=== PATIENT | female | born 1995 | race Caucasian/White ===

== ENCOUNTER 2017-03-08 08:59 | Inpatient (IN) ==
[2017-03-07 09:37] LABS: Basophils % 0.1 % (0.0-0.8); Eosinophils # 0.1 10*3/uL (0.0-0.87); Eosinophils % 0.7 % (0.00-10.9); Hematocrit 36.7 VOL% (35.7-47.0); Hemoglobin 12.6 GM/DL (12.0-16.0); Immature Granulocytes % 0.3 %; Immature Granulocytes Absolute 0.03 #; Lymphocytes # 1.8 10*3/uL (1.4-4.0); Lymphocytes % 19.9 % (21.3-54.2); Mean Corpuscular HGB Conc 34.3 GM/DL (32-36); Mean Corpuscular Hemoglobin 27 PG (27-34); Mean Corpuscular Volume 79.6 FL (87-102); Mean Platelet Volume 10.3 FL (9.6-12.0); Monocytes # 0.3 10*3/uL (0.11-0.8); Monocytes % 3.5 % (1.7-12.7); Neutrophils # 6.7 10*3/uL (1.4-7.4); Neutrophils % 75.5 % (38.7-73.9); Platelet Count 193 T/CUMM (130-400); Red Blood Count 4.61 MC/CUMM (3.8-5.5); Red Cell Distribution Width 13.9 % (9.3-17.3); White Blood Count 8.8 T/CUMM (4-12)
[2017-03-07] MEDS: LABETALOL 100 MG TABLET PO SCH ×2 (09:45→20:55)
--- NOTE | 2017-03-07 10:00 | Ultrasound Report ---
Biophysical profile. Indication: Diabetic mother. There is a single intrauterine gestation in a breech presentation. The placenta is located anterior. The cervix is closed with a length of 4.3 cm. The heart rate is 140 bpm. The RICCO is 10.1 cm. breathing-2 Gross body movement-2 tone-2 Qualitative amniotic fluid volume-2 Score: 8/8, low risk for chronic asphyxia. PROCEDURE INTERPRETED AT [facility] DEPARTMENT OF RADIOLOGY Final Report Signed by: Dr. Abimbola Kemp
[2017-03-07 10:07] LABS: Albumin 2.9 G/DL (3.4-5.0); Bilirubin,Total 0.6 MG/DL (0.2-1.0); Calcium 9.1 MG/DL (8.5-10.1); Osmolality,Calculated 285.8 MOS/KG (273-304); Potassium 4.2 MMOL/L (3.5-5.1); Total Protein 6.4 G/DL (6.4-8.3)
--- NOTE | 2017-03-07 13:58 | OB/GYN History & Physical ---
History of Present Illness Chief complaint: Hyperglycemia, gestational diabetes History of present illness: Ms. Kevin Han is a 21 year old female 21-year-old 7 para 4 who presents with elevation of her blood sugars at 28+ weeks gestation. Patient's blood sugars fasting was well over 200+. She is admitted at this time for diabetic education, insulin management, pelvic ultrasound, and a 24 urine protein and creatinine. Home Medications Medication Instructions Recorded Confirmed Type Multivitamin () [ 1 tablet PO DAILY 04/29/15 06/07/15 History Vitamin] Ferrous Sulfate Tab [Feosol 325 mg PO BID #60 tablet 06/09/15 Rx Original Tab] HYDROcodone/ACETAMIN 5-325 [[place] 2 tablet PO Q6H PRN #30 tablet 06/09/15 Rx 5-325] NIFEdipine XL TAB [Procardia Xl] 30 mg PO DAILY #30 tablet 06/09/15 Rx Allergies Allergy/AdvReac Type Severity Reaction Status Date / Time No Known Allergies Allergy Verified 06/07/15 07:30 Medical,Surgical,& Family Hx - Medical History Reproductive: No history of: Ectopic , Complication - Surgical History Thoracic Surgeries: Patient denies;: Organ Transplant Neurologic Surgeries: Patient denies: Neurologic Surgery Reproductive Surgeries: Surgical HX of;: Section - Family History Family History: Reports;: Family Hypertension (MOM, MGM) Denies;: Family Stroke - Social History Smoking Status: Never smoker Frequency of Alcohol Use: None Type of Drug Use: None 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 - Constitutional Vitals: Vital Signs Temp Pulse Resp BP Pulse Ox 03/07/17 11:53 97.1 F L 93 H 19 116/69 99 General appearance: no acute distress - Head Head exam: Present: normal inspection - Eye Eye exam: Present: EOMI Pupils: Present: MYRNA - ENT ENT exam: Present: normal exam - Neck Neck exam: Present: normal inspection - Respiratory Respiratory exam: Present: clear to auscultation bilaterally - Breast Breasts: as per HPI Menstruation: as per HPI - Cardiovascular Cardiovascular exam: Present: regular rate and rhythm - GI/Abdominal GI/Abdominal exam: Present: normal bowel sounds, other (Positive heart tones, patient will have nonstress test while she is being admitted) - Extremities Exam Extremities exam: Present: normal inspection - Back Exam Back exam: Present: normal inspection - Neurological Exam Neurological exam: Present: alert, oriented X3 - Psychiatric Psychiatric exam: Present: normal affect - Skin Skin exam: Present: normal color Assessment and Plan (1) Gestational diabetes mellitus Status: Acute Assessment and plan: Diabetic management, Current Visit: Yes Results - Labs CBC & BMP: 03/07/17 09:24 03/07/17 09:24
[2017-03-07] MEDS: CLINDAMYCIN 300 MG CAPSULE PO SCH ×2 (15:27→20:55)
[2017-03-07] MEDS: ACETAMINOPHEN/CODEINE 300-30 MG TABLET PO PRN (16:24)
[2017-03-08] MEDS: ACETAMINOPHEN/CODEINE 300-30 MG TABLET PO PRN ×2 (01:05→19:40)
[2017-03-08] MEDS: CLINDAMYCIN 300 MG CAPSULE PO SCH ×4 (04:11→21:38)
--- NOTE | 2017-03-08 07:31 | Progress Note ---
Assessment and Plan (1) Gestational diabetes mellitus Status: Acute Assessment and plan: Diabetic management, Current Visit: Yes Family Medicine PN Sub Interval history: Gestational diabetic, initiated on insulin therapy on the . Her scheduled Accu-Cheks have all been extremely elevated. We will increase her insulin dose to 20 units of N in the morning as well as 10 of our and the same dose will be given in this evening. We will continue to follow her blood sugars, wait for the 24 hour urine, and the assistance of the diabetic educators. Exam (Progress Note) - Constitutional Vitals: Period Temp Pulse Resp BP Sys/[place] Pulse Ox Last 24 Hr 97.0 F-98.1 F 88-96 16-20 116-131/69-88 96-99 Results - Labs CBC & BMP: 03/07/17 09:24 03/07/17 09:24
[2017-03-08] MEDS: LABETALOL 100 MG TABLET PO SCH ×2 (08:40→21:38)
[2017-03-08] MEDS: MULTIVITAMIN (PRENATAL) TABLET PO SCH (08:40)
[~2017-03-08 08:59] MED LIST: CLINDAMYCIN 300 MG CAPSULE PO SCH; DEXTROSE 50% 25 GM/50 ML VIAL IV PRN; GLUCAGON 1 MG VIAL IM PRN; INSULIN NPH 100 UNIT/ML SUBCUT SCH; INSULIN REGULAR 100 UNIT/ML SUBCUT SCH
[2017-03-08 09:13] LABS: Collection Time,Urine 24 HOURS; Total Volume,Urine 4275 ML (400-2000)
[2017-03-08 09:20] LABS: Total Protein 24 Hr Ur Result 555 MG/24HR (0-149.1)
[2017-03-08 09:27] LABS: Creatinine 24 Hr Urine Result 1.41 G/24HR (0.60-1.80)
[2017-03-08] MEDS ORDERED: INSULIN REGULAR 100 UNIT/ML SUBCUT SCH (16:30)
[2017-03-08] MEDS ORDERED: INSULIN NPH 100 UNIT/ML SUBCUT SCH (16:30)
[2017-03-08] MEDS ORDERED: INSULIN REGULAR 100 UNIT/ML SUBCUT ONE (19:58)
[2017-03-08] MEDS ORDERED: INSULIN NPH 100 UNIT/ML SUBCUT ONE ×2 (20:00→20:06)
[2017-03-08] MEDS ORDERED: INSULIN REGULAR 100 UNIT/ML ONE (20:04)
[2017-03-09] MEDS: CLINDAMYCIN 300 MG CAPSULE PO SCH ×2 (03:40→09:40)
[2017-03-09] MEDS ORDERED: INSULIN REGULAR 100 UNIT/ML SUBCUT SCH ×2 (08:00→16:30)
[2017-03-09] MEDS ORDERED: INSULIN NPH 100 UNIT/ML SUBCUT SCH ×2 (08:00→16:30)
[2017-03-09] MEDS: LABETALOL 100 MG TABLET PO SCH (09:41)
[2017-03-09] MEDS: MULTIVITAMIN (PRENATAL) TABLET PO SCH (09:41)
[2017-03-09] MEDS: ACETAMINOPHEN/CODEINE 300-30 MG TABLET PO PRN (09:41)
[2017-03-09] MEDS ORDERED: INSULIN REGULAR 100 UNIT/ML SUBCUT ONE (10:26)
--- NOTE | 2017-03-09 10:53 | Discharge Summary ---
Hospital Course - Hospital Course Hospital Course: Gestational diabetic who presents for diabetic control. Blood sugars are ranging anywhere from 2-300 on fasting. On her third day of hospitalization her fasting blood sugars at 147. Her insulin was initiated starting at 10 units in the morning subsequently 20 and presently at 30 and 20 units in an R and her blood sugar is remaining at 147. We will discharge this patient at 35 units of N in the morning and 25 units of Humulin R with an equal dose in the evening. Patient still instructed to check her blood sugars 4 times a day. Ultrasound of the of the fetus was within normal limits. 24-hour urine protein and creatinine was also within normal limits. Patient has been thoroughly instructed by the clinical document improvement educator and will be discharged with her scheduled doses and return our office in 1 week. Diagnosis - Discharge Diagnosis (1) Gestational diabetes mellitus Status: Acute Discharge Plan - Discharge Data Condition at Discharge: Stable Discharge Diet: diabetic diet Activity: increase activity as tolerated Hygiene: may shower, may tub bathe Weight Bearing at Discharge: full weight bearing Driving: no restrictions Contact your physician if you experience:: fever over 101, Shortness of breath, Bleeding - Discharge Medications New Acetamin/Codeine 300-30 Tab [Tylenol/Codeine #3] 1 tablet PO Q4H PRN #20 tablet PRN Reason: Pain Mild (1-3) Insulin NPH [HumuLIN N] 35 unit SUBCUT AC SUPPER #1 unit Insulin NPH [HumuLIN N] 35 unit SUBCUT AC BREAKFAST #1 unit Insulin Regular [HumuLIN R] 25 unit SUBCUT AC SUPPER #1 unit Insulin Regular [HumuLIN R] 25 unit SUBCUT AC BREAKFAST #1 unit Clindamycin Cap [Cleocin Cap] 300 mg PO Q6H #20 capsule Labetalol Tab [Trandate Tab] 100 mg PO BID tablet No Action Multivitamin () [ Vitamin] 1 tablet PO DAILY HYDROcodone/ACETAMIN 5-325 [[place] 5-325] 2 tablet PO Q6H PRN #30 tablet PRN Reason: Pain Moderate (4-7) Labetalol Tab [Trandate Tab] 100 mg PO BID - Follow Up or Referral - Forms/Instructions Exam - Constitutional Vitals: Period Temp Pulse Resp BP Sys/[place] Pulse Ox Last 24 Hr 97.1 F-98.7 F 87-105 18-20 108-132/61-82 97-99 Discharge Results Labs on day of discharge: Labs from last 24 hours 03/09/17 03/09/17 03/08/17 10:25 07:37 19:39 POC Glucose 244 H 147 H 304 H 03/08/17 16:01 POC Glucose 295 H DS: Provider Date of admission: 03/08/17 08:59 Primary care physician: . No PCP Attending physician on admission: Edgar Zheng MD Consults: 03/07/17 08:21 Consult to [facility], Educator [CONS] Routine Reason for Coil Connector: Evaluate and Recommend Consult Comment: failed glucose tolerance test 03/07/17 13:52 Consult to Dietitian [CONS] Routine Reason for Dietitian: Other Consult Comment: [employer] ALREADY SEEING THIS PT Discharging clinician: Edgar Zheng MD
[2017-03-09 13:03] VITALS: BP 129/86
== END 2017-03-09 13:20 | disposition home or self-care (01) | DRG 566 ==
LOC: N.OB
PROVIDERS: ADMIT Obstetrics & Gynecology; ATTEND Obstetrics & Gynecology

== ENCOUNTER 2017-05-17 05:34 | Inpatient (IN) ==
[2017-05-17] MEDS: LACTATED RINGERS 1,000 ML IV SCH ×2 (06:08→07:58)
[2017-05-17] MEDS ORDERED: ceFAZolin 2,000 MG in PREMIX 1 EACH IV ONE (06:13)
[2017-05-17] MEDS ORDERED: FAMOTIDINE 20 MG/2 ML VIAL IV ONE (06:13)
[2017-05-17] MEDS ORDERED: CITRIC ACID/SODIUM CITRATE 30 ML UDCUP PO ONE (06:13)
[2017-05-17 06:55] LABS: Basophils % 0.2 % (0.0-0.8); Eosinophils # 0.1 10*3/uL (0.0-0.87); Eosinophils % 0.7 % (0.00-10.9); Hematocrit 36.3 VOL% (35.7-47.0); Hemoglobin 12.1 GM/DL (12.0-16.0); Immature Granulocytes % 0.4 %; Immature Granulocytes Absolute 0.04 #; Lymphocytes # 2.6 10*3/uL (1.4-4.0); Lymphocytes % 26.3 % (21.3-54.2); Mean Corpuscular HGB Conc 33.3 GM/DL (32-36); Mean Corpuscular Hemoglobin 26 PG (27-34); Mean Corpuscular Volume 79.1 FL (87-102); Monocytes # 0.5 10*3/uL (0.11-0.8); Monocytes % 5.2 % (1.7-12.7); Neutrophils # 6.7 10*3/uL (1.4-7.4); Neutrophils % 67.2 % (38.7-73.9); Platelet Count 216 T/CUMM (130-400); Red Blood Count 4.59 MC/CUMM (3.8-5.5); Red Cell Distribution Width 14.4 % (9.3-17.3)
[2017-05-17 07:08] LABS: Partial Thromboplastin Time 28.4 SECS (0-40)
[2017-05-17] MEDS ORDERED: OXYTOCIN 10 UNIT/ML VIAL IM ONE (07:24)
[2017-05-17] MEDS ORDERED: OXYTOCIN/LR 30 UNIT/1,000 ML BAG IV ONE (07:24)
[2017-05-17 07:25] LABS: Albumin 2.6 G/DL (3.4-5.0); Bilirubin,Total 0.6 MG/DL (0.2-1.0); Calcium 8.8 MG/DL (8.5-10.1); Osmolality,Calculated 275.5 MOS/KG (273-304); Potassium 3.9 MMOL/L (3.5-5.1); Total Protein 6.4 G/DL (6.4-8.3)
[2017-05-17] MEDS ORDERED: PHENYLEPHRINE 1 MG/10 ML SYRINGE IV ONE (09:11)
[2017-05-17] MEDS ORDERED: OXYTOCIN 10 UNIT/ML VIAL ONE (09:11)
[2017-05-17] MEDS ORDERED: ONDANSETRON 4 MG/2 ML VIAL ONE (09:11)
[2017-05-17] MEDS ORDERED: ONDANSETRON 4 MG/2 ML VIAL IV PRN (10:16)
[2017-05-17] MEDS ORDERED: OXYTOCIN/LR 20 UNIT/1,000 ML BAG IV ONE (10:16)
[2017-05-17] MEDS ORDERED: SIMETHICONE CHEW 80 MG TABLET PO PRN (10:16)
[2017-05-17] MEDS ORDERED: MAGNESIUM HYDROXIDE SUSP 30 ML UDCUP PO PRN (10:16)
[2017-05-17] MEDS ORDERED: GLUCAGON 1 MG VIAL IM PRN (10:16)
[2017-05-17] MEDS ORDERED: ACETAMINOPHEN 325 MG TABLET PO PRN (10:16)
[2017-05-17] MEDS ORDERED: RHO(D) IMMUNE GLOBULIN 300 MCG SYRINGE IM ONE (10:16)
[2017-05-17] MEDS ORDERED: DEXTROSE 50% 25 GM/50 ML SYRINGE IV PRN (10:16)
[2017-05-17 10:17] LABS: Cord Arterial Blood HCO3 22.4 MMOL/L
[2017-05-17 10:20] LABS: Cord Venous Blood HCO3 23.9 MMOL/L; Cord Venous Blood PCO2 43.4 MMHG; Cord Venous Blood PO2 40.1
[2017-05-17] MEDS ORDERED: MORPHINE 10 MG/10 ML VIAL ONE (10:27)
[2017-05-17] MEDS ORDERED: fentaNYL 100 MCG/2 ML VIAL ONE (10:27)
[2017-05-17] MEDS ORDERED: MIDAZOLAM 2 MG/2 ML VIAL ONE (10:28)
[2017-05-17] MEDS ORDERED: LACTATED RINGERS 1,000 ML IV SCH (10:30)
[2017-05-17 18:01] LABS: Basophils % 0.3 % (0.0-0.8); Eosinophils # 0.1 10*3/uL (0.0-0.87); Eosinophils % 0.4 % (0.00-10.9); Hematocrit 35.5 VOL% (35.7-47.0); Immature Granulocytes % 0.4 %; Immature Granulocytes Absolute 0.05 #; Lymphocytes # 2.1 10*3/uL (1.4-4.0); Lymphocytes % 17.4 % (21.3-54.2); Mean Corpuscular HGB Conc 33.8 GM/DL (32-36); Mean Corpuscular Hemoglobin 27 PG (27-34); Mean Corpuscular Volume 79.1 FL (87-102); Mean Platelet Volume 10.5 FL (9.6-12.0); Monocytes # 0.5 10*3/uL (0.11-0.8); Monocytes % 4.3 % (1.7-12.7); Neutrophils # 9.2 10*3/uL (1.4-7.4); Neutrophils % 77.2 % (38.7-73.9); Platelet Count 185 T/CUMM (130-400); Red Blood Count 4.49 MC/CUMM (3.8-5.5); Red Cell Distribution Width 14.1 % (9.3-17.3)
[2017-05-17] MEDS: IBUPROFEN 800 MG TABLET PO PRN (19:49)
[2017-05-17] MEDS: DOCUSATE SODIUM 100 MG CAPSULE PO SCH (20:54)
[2017-05-17] MEDS: LABETALOL 100 MG TABLET PO SCH (20:55)
[2017-05-18 05:00] LABS: Basophils % 0.4 % (0.0-0.8); Eosinophils # 0.1 10*3/uL (0.0-0.87); Eosinophils % 0.9 % (0.00-10.9); Hematocrit 32.4 VOL% (35.7-47.0); Hemoglobin 10.6 GM/DL (12.0-16.0); Immature Granulocytes % 0.4 %; Immature Granulocytes Absolute 0.04 #; Lymphocytes # 2.5 10*3/uL (1.4-4.0); Lymphocytes % 26.1 % (21.3-54.2); Mean Corpuscular HGB Conc 32.7 GM/DL (32-36); Mean Corpuscular Hemoglobin 26 PG (27-34); Mean Corpuscular Volume 80.6 FL (87-102); Mean Platelet Volume 10.2 FL (9.6-12.0); Monocytes # 0.4 10*3/uL (0.11-0.8); Monocytes % 4.5 % (1.7-12.7); Neutrophils # 6.5 10*3/uL (1.4-7.4); Neutrophils % 67.7 % (38.7-73.9); Platelet Count 181 T/CUMM (130-400); Red Blood Count 4.02 MC/CUMM (3.8-5.5); Red Cell Distribution Width 14.1 % (9.3-17.3); White Blood Count 9.7 T/CUMM (4-12)
[2017-05-18] MEDS: DOCUSATE SODIUM 100 MG CAPSULE PO SCH ×2 (09:12→20:55)
[2017-05-18] MEDS: MULTIVITAMIN (PRENATAL) TABLET PO SCH (09:12)
[2017-05-18] MEDS: LABETALOL 100 MG TABLET PO SCH ×2 (09:12→20:55)
[2017-05-18] MEDS: INSULIN NPH 100 UNIT/ML SUBCUT SCH (09:13)
[2017-05-18] MEDS: INSULIN REGULAR 100 UNIT/ML SUBCUT SCH (09:14)
[2017-05-18] MEDS: IBUPROFEN 800 MG TABLET PO PRN (09:16)
[2017-05-18] MEDS ORDERED: SUMAtriptan 6 MG/0.5 ML VIAL SUBCUT ONE (09:54)
[2017-05-18] MEDS ORDERED: BUTALBITAL/ACETAMIN/CAFFEINE 50-325-40 MG TABLET PO PRN (09:55)
[2017-05-19] MEDS ORDERED: BISACODYL 10 MG SUPP RECTAL PRN (02:37)
[2017-05-19] MEDS: IBUPROFEN 800 MG TABLET PO PRN (04:06)
[2017-05-19] MEDS: INSULIN NPH 100 UNIT/ML SUBCUT SCH (07:40)
[2017-05-19 08:09] VITALS: BP 120/83
[2017-05-19] MEDS: DOCUSATE SODIUM 100 MG CAPSULE PO SCH (09:04)
[2017-05-19] MEDS: MULTIVITAMIN (PRENATAL) TABLET PO SCH (09:04)
[2017-05-19] MEDS: LABETALOL 100 MG TABLET PO SCH (09:04)
[2017-05-19] MEDS: INSULIN REGULAR 100 UNIT/ML SUBCUT SCH (09:20)
== END 2017-05-19 13:33 | disposition home or self-care (01) | DRG 540 ==
LOC: N.LDOUT 05:34 → N.LD 05:35 → N.OB 15:20
PROVIDERS: ADMIT Obstetrics & Gynecology; ATTEND Obstetrics & Gynecology